=== PATIENT | male | born 1980 | race African-American/Black ===

== ENCOUNTER 2017-06-19 16:01 | Inpatient (IN) ==
[2017-06-19] MEDS ORDERED: ENOXAPARIN 100 MG/ML SYRINGE SUBCUT STA (17:29)
[2017-06-19] MEDS ORDERED: ASPIRIN 325 MG TABLET PO STA (17:29)
[2017-06-19] MEDS ORDERED: NITROGLYCERIN SL 0.4 MG TABLET SL PRN (17:29)
--- NOTE | 2017-06-19 17:46 | Emergency Department Note ---
Benjamin Castañeda Brooke, am scribing for, and in the presence of, Davidson Martin MD 17:36. Veronica Castañeda Phillip K, MD, personally performed the services described in this documentation, ascribed by Linda Alexander in my presence, and it is both accurate and complete 746 . Arrival <Katherine Swift - Last Filed: 06/19/17 19:09> - Arrival ED Nursing Triage Note: Pt c/o chest pain that radiates into his right arm since Friday. Denies SOB or nausea. Mode of Arrival: Ambulatory Limitations: No Limitations Source: Patient, RN Notes Reviewed - History of Present Illness Onset (ago): day(s) (5) Consistency: intermittent <Davidson Martin - Last Filed: 06/20/17 17:41> - Arrival Chief Complaint: Chest Pain Stated Complaint: CHEST PAIN Time Seen by Provider: 06/19/17 17:24 - History of Present Illness HPI Narrative: Patient is a 36 year old male who presents to the ED with c/o chest pain that started on Friday. He says he was not doing anything exertional when the pain started. Patient describes the pain as tightness and intermittent. It is located in the center of his chest. Patient chest is tender to palpation. He says the pain worsened last night and today. Nothing makes the pain worse. The chest pain does radiate into his right arm. He is currently in "a little" pain. He does not have history of heart problems and has never had heart cath or treadmill test in the past. He does not have a FHx of heart problems. Patient denies having nausea, vomiting,diaphoresis, shortness of breath, fever, cough, calf pain, or abdominal pain. He has no known medical problems and does not take any medications. Patient does not have a Primary Care Provider. He is a smoker. (Linda Alexander) Patient is a 36 year old male who presents to the ED with c/o chest pain that started on Friday. He says he was not doing anything exertional when the pain started. Patient describes the pain as tightness and intermittent. It is located in the center of his chest. Patient chest is tender to palpation. He says the pain worsened last night and today. Nothing makes the pain worse. The chest pain does radiate into his right arm. He is currently in "a little" pain. He does not have history of heart problems and has never had heart cath or treadmill test in the past. He does not have a FHx of heart problems. Patient denies having nausea, vomiting,diaphoresis, shortness of breath, fever, cough, calf pain, or abdominal pain. He has no known medical problems and does not take any medications. Patient does not have a Primary Care Provider. He is a smoker. (Davidson Martin) Allergies/Adverse Reactions: Allergies Allergy/AdvReac Type Severity Reaction Status Date / Time No Known Allergies Allergy Verified 08/30/15 17:49 Home Medications: Home Medications Medication Instructions Recorded Confirmed Type No Known Home Medications [No 06/19/17 06/19/17 History Known Home Medications] Review of System - Review of System 12 point system: reviewed and no additional remarkable complaints except as stated - Review of System Constitutional: Absent: diaphoresis, fever Respiratory: Absent: respiratory distress Cardiovascular: Present: chest pain Gastrointestinal: Absent: abdominal pain, nausea, vomiting Musculoskeletal: Present: arm pain (right) Skin: Absent: rash <Davidson Martin - Last Filed: 06/20/17 17:41> Medical,Surgical,& Family Hx - Medical History Gastrointestinal: History of: GERD (does not take any med for this) - Family History Family History: Reports;: Family Hypertension - Social History Smoking Status: Current every day smoker <Davidson Martin - Last Filed: 06/20/17 17:41> Exam - General General appearance: alert, in no apparent distress - Head Head exam: Present: atraumatic, normocephalic - Eye Eye exam: Present: normal appearance, PERRL, EOMI - ENT ENT exam: Present: normal exam - Neck Neck exam: Present: normal inspection - Chest Chest inspection: Present: symmetric chest wall rise, tenderness (anterior chest wall) - Respiratory Respiratory exam: Present: normal lung sounds bilaterally - Cardiovascular Cardiovascular exam: Present: regular rate, normal rhythm, normal heart sounds - Abdominal Exam Abdominal exam: Present: soft, normal bowel sounds. Absent: distention, tenderness - Extremities Exam Extremities exam: Present: normal inspection - Back Exam Back exam: Present: normal inspection - Neurological Exam Neurological exam: Present: alert, oriented X3 - Psychiatric Psychiatric exam: Present: normal affect, normal mood - Skin Skin exam: Present: warm, dry, intact, normal color <Davidson Martin - Last Filed: 06/20/17 17:41> Vital Signs: Vital Signs Temperature 97.8 F 06/20/17 15:52 Pulse Rate 66 06/20/17 17:20 Respiratory Rate 18 06/20/17 17:20 Blood Pressure 156/120 06/20/17 17:20 O2 Sat by Pulse Oximetry 100 06/20/17 17:20 Course <Katherine Swift - Last Filed: 06/19/17 19:09> <Davidson Martin - Last Filed: 06/20/17 17:41> Course Narrative: Spoke with Dr. Hardy visual basic developer on-call who will admit patient patient is stable at this time and is not actively having chest pain. Patient got Lovenox and aspirin while in the ED. (Katherine Swift) Results - Labs CBC & BMP: 06/19/17 17:42 06/19/17 17:42 Lab Results: I have reviewed the patients labs - EKG EKG results: interpreted by GADIEL <Katherine Swift - Last Filed: 06/19/17 19:09> - Labs CBC & BMP: 06/20/17 00:13 06/20/17 00:13 - EKG EKG results: interpreted by GADIEL, sinus rhythm (Inferior and lateral ST-T changes) <Davidson Martin - Last Filed: 06/20/17 17:41> Disposition Case discussed with: patient Time of Disposition: 19:12 <Katherine Swift - Last Filed: 06/19/17 19:09> <Davidson Martin - Last Filed: 06/20/17 17:41> Clinical Impression: Chest pain, Elevated troponin Disposition: Still a Patient Condition: Stable
[2017-06-19 17:57] LABS: Basophils % 0.5 % (0.0-0.8); Eosinophils # 0.1 10*3/uL (0.0-0.87); Hemoglobin 15.3 GM/DL (14.0-18.0); Immature Granulocytes % 0.5 %; Immature Granulocytes Absolute 0.03 #; Lymphocytes % 34.1 % (21.2-54.2); Mean Corpuscular HGB Conc 35.6 GM/DL (32-36); Mean Corpuscular Hemoglobin 32 PG (27-34); Mean Corpuscular Volume 89.8 FL (87-102); Mean Platelet Volume 10.5 FL (9.6-12.0); Monocytes # 0.7 10*3/uL (0.11-0.8); Monocytes % 11.4 % (1.7-12.7); Neutrophils # 3.1 10*3/uL (1.4-7.4); Neutrophils % 52.5 % (38.7-73.9); Platelet Count 268 T/CUMM (130-400); Red Blood Count 4.79 MC/CUMM (3.8-5.5); Red Cell Distribution Width 14.1 % (9.3-17.3); White Blood Count 5.9 T/CUMM (4-12)
[2017-06-19] MEDS ORDERED: ENOXAPARIN 100 MG/ML SYRINGE SUBCUT ONE (18:23)
[2017-06-19] MEDS ORDERED: ASPIRIN 325 MG TABLET ONE (18:23)
[2017-06-19 18:34] LABS: Albumin 3.7 G/DL (3.4-5.0); Bilirubin,Total 0.7 MG/DL (0.2-1.0); Calcium 9.3 MG/DL (8.5-10.1); Magnesium 2.4 MG/DL (1.8-2.4); Osmolality,Calculated 274.7 MOS/KG (273-304); Potassium 4.8 MMOL/L (3.5-5.1); Total Protein 7.3 G/DL (6.4-8.3)
--- NOTE | 2017-06-19 18:59 | XRay Report ---
History: Chest pain Date: 06/19/2017 Study: Chest x-ray AP portable Comparison exam: No previous chest x-ray currently available for comparison purposes. The cardiomediastinal silhouette and pulmonary vasculature are unremarkable for shallow breath. There is some questionable mild hazy left perihilar infiltrate. The lungs and pleural spaces are otherwise clear. Osseous structures are unremarkable. Impression: There is some questionable mild left perihilar infiltrate. Consider low-grade pneumonia. Follow-up films may be helpful PROCEDURE INTERPRETED AT [facility] DEPARTMENT OF RADIOLOGY Final Report Signed by: Dr. Gloria Mann
[2017-06-19] MEDS ORDERED: MAGNESIUM SULF RIDER 4 GM in PREMIX 1 EACH IV PRN (19:19)
[2017-06-19] MEDS ORDERED: ONDANSETRON 4 MG/2 ML VIAL IV PRN (19:19)
[2017-06-19] MEDS ORDERED: MAGNESIUM SULF RIDER 2 GM in PREMIX 1 EACH IV PRN (19:19)
[2017-06-19] MEDS ORDERED: ZALEPLON 5 MG CAPSULE PO PRN (19:19)
[2017-06-19] MEDS ORDERED: NICOTINE 21 MG/24 HR PATCH TRANSDERM PRN (19:19)
[2017-06-19 22:51] LABS: CKMB % 3.6 %
[2017-06-19 22:53] LABS: Troponin I Only 2.12 NG/ML (0.00-0.045)
[2017-06-20 00:52] LABS: Basophils % 0.3 % (0.0-0.8); Eosinophils # 0.1 10*3/uL (0.0-0.87); Eosinophils % 1.4 % (0.00-10.9); Hematocrit 42.8 VOL% (42.0-52.0); Immature Granulocytes % 0.3 %; Immature Granulocytes Absolute 0.02 #; Lymphocytes # 2.6 10*3/uL (1.4-4.0); Lymphocytes % 45.8 % (21.2-54.2); Mean Corpuscular Hemoglobin 31 PG (27-34); Mean Corpuscular Volume 89.4 FL (87-102); Mean Platelet Volume 10.9 FL (9.6-12.0); Monocytes # 0.5 10*3/uL (0.11-0.8); Monocytes % 9.1 % (1.7-12.7); Neutrophils # 2.5 10*3/uL (1.4-7.4); Neutrophils % 43.1 % (38.7-73.9); Platelet Count 257 T/CUMM (130-400); Red Blood Count 4.79 MC/CUMM (3.8-5.5); White Blood Count 5.7 T/CUMM (4-12)
[2017-06-20 01:24] LABS: CKMB % 3.9 %
[2017-06-20 01:26] LABS: Troponin I Only 2.9 NG/ML (0.00-0.045)
[2017-06-20 02:08] LABS: Alanine Aminotransferase 29 U/L (16-61); Albumin 3.5 G/DL (3.4-5.0); Alkaline Phosphatase 64 U/L (45-117); Aspartate Amino Transferase 38 U/L (0-37); Bilirubin,Total < 0.39 MG/DL (0.2-1.0); Blood Urea Nitrogen 14 MG/DL (7-18); Calcium 8.4 MG/DL (8.5-10.1); Cholesterol 229 MG/DL (50-200); Glucose 103 MG/DL (74-106); HDL Cholesterol 41 MG/DL (40-60); Osmolality,Calculated 277.5 MOS/KG (273-304); Potassium 3.8 MMOL/L (3.5-5.1); Risk Ratio 5.59; Sodium 139 MMOL/L (136-145); Triglycerides 175 MG/DL (2-150)
[2017-06-20 03:36] LABS: CKMB % 4.2 %
[2017-06-20 03:37] LABS: Troponin I Only 4.46 NG/ML (0.00-0.045)
--- NOTE | 2017-06-20 06:39 | EKG Report ---
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
--- NOTE | 2017-06-20 06:41 | EKG Report ---
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
--- NOTE | 2017-06-20 06:43 | EKG Report ---
Stationary ECG Study 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
--- NOTE | 2017-06-20 06:43 | EKG Report ---
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
--- NOTE | 2017-06-20 08:27 | XRay Report ---
Portable chest Exam date: 06/20/2017 558 AM Indication: Shortness of breath, cough Comparison: Previous day 0548 hours Findings: Cardiomediastinal contours are stable. Lungs are clear bilaterally. No acute osseous abnormalities. Visualized upper abdomen demonstrates no acute pathology. Impression: No acute cardiopulmonary findings PROCEDURE INTERPRETED AT [facility] DEPARTMENT OF RADIOLOGY Final Report Signed by: Dani Downing
[2017-06-20] MEDS ORDERED: PANTOPRAZOLE 40 MG TABLET PO SCH (09:00)
[2017-06-20] MEDS ORDERED: CARVEDILOL 3.125 MG TABLET PO SCH (09:30)
[2017-06-20] MEDS ORDERED: ASPIRIN CHEW 81 MG TABLET PO SCH (09:30)
[2017-06-20] MEDS ORDERED: MAGNESIUM SULF RIDER 2 GM in PREMIX 1 EACH IV PRN (10:28)
[2017-06-20] MEDS ORDERED: POTASSIUM CHLORIDE RIDER 10 MEQ in PREMIX 1 EACH IV PRN (10:28)
[2017-06-20] MEDS ORDERED: diphenhydrAMINE CAP 25 MG CAPSULE PO ONE (10:28)
[2017-06-20] MEDS ORDERED: DIAZEPAM 5 MG TABLET PO ONE (10:28)
[2017-06-20] MEDS ORDERED: SODIUM CHLORIDE 0.45% 1,000 ML IV SCH (10:30)
[2017-06-20] MEDS ORDERED: HEPARIN/NACL 0.9% 2 UNITS/ML 1,000 ML IV ONE (13:06)
[2017-06-20] MEDS ORDERED: LIDOCAINE 1%/EPI INJ 20 ML VIAL ONE (13:08)
[2017-06-20] MEDS ORDERED: MIDAZOLAM 2 MG/2 ML VIAL ONE (13:17)
[2017-06-20] MEDS ORDERED: fentaNYL 100 MCG/2 ML VIAL ONE (13:18)
--- NOTE | 2017-06-20 13:34 | History and Physical Update ---
Sedation H&P Update - Physical Exam Mental Status: alert and oriented Heart: regular rate and rhythm Lung: clear to auscultation Abdomen: within normal limits Vitals: within normal limits - Sedation Plan for Sedation: moderate Patient Consent: Procedure disscussed with patient and patinet has consented., Risks and benefits were discussed with patient,including infection,, bleeding, injury to surrounding structures, seizure, temporary nerve, Patient understands and accepts potential risks/benefits and agrees to, proceed. ASA Class: III Airway Assessment: Class III: Soft palate, base of uvula visible
[2017-06-20] MEDS ORDERED: ENOXAPARIN 60 MG/0.6 ML SYRINGE ONE (13:49)
[2017-06-20] MEDS ORDERED: TIROFIBAN 5,000 MCG/100 ML PREMIX IV ONE (13:54)
[2017-06-20] MEDS ORDERED: TIROFIBAN 5,000 MCG/100 ML PREMIX IV SCH (13:59)
[2017-06-20] MEDS ORDERED: TICAGRELOR 90 MG TABLET ONE (14:04)
[2017-06-20] MEDS ORDERED: hydrALAZINE 20 MG/1 ML VIAL ONE (14:16)
--- NOTE | 2017-06-20 14:34 | Cardiac Catheterization ---
Date of Procedure:: 06/20/17 Pre-op Diagnosis: Non-ST elevation myocardial infarction Post-op diagnosis: same Procedure: Procedures performed: #1 left heart catheterization #2 coronary angiography #3 percutaneous intervention to the distal circumflex coronary artery with a 2.25 x 12 mm synergy drug-eluting stent with a good angiographic result #4 Percutaneous intervention to the first marginal branch with a 2.25 x 16 mm Synergy drug-eluting stent with a good angiographic result #5 left ventriculography #6 right femoral sheath angiography #7 Angio-Seal closure right femoral arteriotomy site After obtaining informed consent the patient brought to the Nurse Ortho where the right groin was prepped and draped in the usual sterile manner. After local anesthesia and intravenous sedation a needle stick was made to the right femoral artery and a 6 Azeri sheath was positioned without difficulty. A Srhavan left catheter was advanced over a guidewire under fluoroscopic control to the ascending aorta where angiography of left coronary artery was undertaken in multiple views. After adequate angiograms of the left coronary were obtained this catheter was withdrawn and an AMRM right coronary catheter was advanced over a guidewire under fluoroscopic control to the ascending aorta where angiography of the right coronary artery was undertaken in multiple views. After adequate angiograms of the right coronary were obtained this catheter was withdrawn and a pigtail ventriculographic catheter was advanced over a guidewire under fluoroscopic control to the ascending aorta where it was passed across the aortic valve and intraventricular hemodynamics were measured. Patient underwent left ventriculography injecting 35 mL of contrast at 12 mL/ s. This was performed from the right anterior oblique projection. After ventriculography this catheter was pulled back from the ventricle to the aorta under hemodynamic monitoring and removed. We elected to proceed with percutaneous intervention of the circumflex and first marginal branch of the circumflex coronary artery. A Shravan left guide was advanced over a guidewire under fluoroscopic control to the ascending aorta where the left coronary artery was engaged. An 014 BMW wire was advanced to the distal circumflex coronary artery and a 2.25 x 12 mm synergy drug-eluting stent was advanced to the lesion and after adequate positioning was deployed at 14 maik. After post stent deployment inflation there was good step up and step down with distal coronary vasospasm that resolved over time. There was ORQUIDEA grade 3 flow down the vessel noted end procedure. At this point we directed our attention to the first marginal branch. The BMW wire was directed down the marginal branch and then a 2.25 x 16 mm Synergy drug-eluting stent was advanced to the area the ostium of the marginal and inflated to 11 maik. There was good resolution of the stenotic segment at the origin of the vessel. There was good stepup distally. There was ORQUIDEA grade III flow down both marginal and the circumflex. Repeat angiography confirmed a good result. At this point the guidewire and delivery balloon were removed from the guide. The guide was then removed from the sheath. The patient underwent right femoral sheath angiography which demonstrated anatomy appropriate for Angio-Seal closure. This was performed without difficulty and good hemostasis was obtained. Hemodynamics: Please see the accompanying data sheet Coronary angiography: Left coronary artery: The left main coronary artery is well-developed and free of significant obstructing lesions. The circumflex coronary is a large dominant vessel that is subtotally occluded at the distal portion. This is at the takeoff of a moderate sized marginal branch. The stenosis is fairly discrete and 99% flow- limiting. The first marginal branch of the circumflex is noted to have an ostial 90% area stenosis. The remainder the circumflex and its branches are free of significant obstructing lesions. There is a large ramus branch of the left coronary system which is free of significant obstructing lesions. The left anterior descending coronary artery is a large vessel that extends to the apex of the ventricle. The LAD and its branches are free of significant obstructing lesions. Right coronary artery: The right coronary artery is a large dominant vessel that possesses no significant lesions through its course. The branches of the right coronary likewise are free of significant obstructing lesions. Left ventriculography: After injection of contrast in the left ventricle it is noted to be mildly enlarged with diffuse moderate left ventricular hypokinesis. Overall ejection fraction measures in the 40-45% range. Mitral and aortic structures appear normal by ventriculography. Percutaneous intervention: Distal circumflex: After the above-described procedure of the distal circumflex appeared to be resolution of the stenosis with ORQUIDEA grade III flow down the vessel. There was initial distal vasospasm which resolved over time. Final result appeared to be without significant complication. First marginal: After stent deployment at the ostium the first marginal appeared to be good resolution of the stenosis noted. There was no impingement upon the circumflex proper and ORQUIDEA grade III flow down both marginal and the circumflex. Right femoral sheath angiography: After injection of contrast in the right femoral arterial sheath it appears to enter the common femoral above the bifurcation. No evidence of significant disease of the distal iliac, common femoral or bifurcation be noted based on this limited angiographic study. Conclusions: 1: Successful percutaneous coronary intervention of the distal circumflex as well as of the first marginal related to intracoronary stent placement. These were 2.25 x 12 in the distal circumflex and 2.25 x 16 and the marginal branch. 2 ejection fraction noted to be in the 40-45% range with diffuse LV hypokinesis 3: Angio-Seal closure right femoral arteriotomy site Discussion and recommendations: The patient presents with non-ST elevation myocardial infarction. Received percutaneous intervention to the first marginal branch and to the distal circumflex. There is good angiographic result in both sides and we will watch the patient closely for evidence of recurring ischemia or bleeding. We will continue aggressive risk factor modification and appropriate antianginal treatment. Surgeon / Physician: Prince Hardy - Medications / Follow-up
[2017-06-20] MEDS ORDERED: HYDROmorphone 2 MG/1 ML VIAL IV PRN (15:39)
[2017-06-20] MEDS: ASPIRIN EC 81 MG TABLET PO SCH (16:14)
[2017-06-20] MEDS: cloNIDine 0.1 MG TABLET PO PRN ×3 (16:14→18:14)
[2017-06-20] MEDS: ROSUVASTATIN 20 MG TABLET PO SCH (21:18)
[2017-06-20] MEDS: TICAGRELOR 90 MG TABLET PO SCH (21:18)
[2017-06-20] MEDS: METOPROLOL TARTRATE 50 MG TABLET PO SCH (21:18)
[2017-06-21 06:08] LABS: Basophils % 0.6 % (0.0-0.8); Eosinophils # 0.1 10*3/uL (0.0-0.87); Eosinophils % 1.1 % (0.00-10.9); Immature Granulocytes % 0.6 %; Immature Granulocytes Absolute 0.03 #; Lymphocytes # 1.8 10*3/uL (1.4-4.0); Lymphocytes % 33.8 % (21.2-54.2); Mean Corpuscular HGB Conc 35.7 GM/DL (32-36); Mean Corpuscular Hemoglobin 32 PG (27-34); Mean Corpuscular Volume 89.4 FL (87-102); Mean Platelet Volume 11.2 FL (9.6-12.0); Monocytes # 0.6 10*3/uL (0.11-0.8); Monocytes % 10.8 % (1.7-12.7); Neutrophils # 2.8 10*3/uL (1.4-7.4); Neutrophils % 53.1 % (38.7-73.9); Platelet Count 256 T/CUMM (130-400); Red Cell Distribution Width 14.1 % (9.3-17.3); White Blood Count 5.3 T/CUMM (4-12)
[2017-06-21 07:59] LABS: Magnesium 2.2 MG/DL (1.8-2.4); Osmolality,Calculated 274.7 MOS/KG (273-304); Potassium 4.3 MMOL/L (3.5-5.1)
[2017-06-21] MEDS: LOSARTAN 25 MG TABLET PO SCH (08:15)
[2017-06-21] MEDS: TICAGRELOR 90 MG TABLET PO SCH ×2 (08:15→21:47)
[2017-06-21] MEDS: PANTOPRAZOLE 40 MG TABLET PO SCH (08:15)
[2017-06-21] MEDS: METOPROLOL TARTRATE 50 MG TABLET PO SCH ×2 (08:15→21:47)
[2017-06-21] MEDS: ASPIRIN EC 81 MG TABLET PO SCH (08:15)
--- NOTE | 2017-06-21 09:40 | Cardiology Progress Note ---
Assessment and Plan (1) Non-ST elevation myocardial infarction (NSTEMI) Status: Acute Assessment and plan: Patient is undergone 2 stents to the circumflex with good results and our plan we to continue his current medical therapy. We discussed in detail the need for him to take his medications and follow-up related to his heart issues. Current Visit: Yes (2) Hypertension Status: Acute Current Visit: Yes (3) Dyslipidemia Status: Chronic Current Visit: Yes Cardiology - PN: Subj Interval history: June 20, 2017: Mr. Rodriguez is a 36 year old male, who presented to the ER with complaints of central chest pain. Reports that he started having central chest tightness 4 days ago while at rest. He states he believed he was having gas pains and he took something for gas and the pain eventually resolved. He reports the episode happened again 2 days later, again he noted he was at rest and he began having central chest tightness with radiation to the right arm. He took OTC gas medication, and the pain eventually was relieved. He reports that yesterday approximately 1 hour after eating he began having chest tightness that would not go away. This was what brought him into the emergency room. He denies nausea, vomiting, palpitations, shortness of breath, edema during these episodes. He describes the chest pain as tightness. He denies aggravating factors and notes that chest pain was alleviated after taking OTC gas medication. Past surgical history includes a previous left leg surgery after fracture. He reports no medical history other than he was seen at this ER sometime ago for hypertension, and was not discharged on medications. He denies following up with a primary care provider. He does report occasional headaches. He reports smoking for 22 years, he describes smoking 4-5 cigarettes a day and states that it probably was heavier earlier in life. He reports occasional alcohol use, and occasional marijuana use. Cardiac risk factors include obesity, tobacco abuse, sedentary lifestyle, hypertension, dyslipidemia. His reports that he snores regularly, given his size I suspect some degree of ROLANDO. He states he has a family history of hypertension and CVA. The patient was seen this morning sitting up on the side of the bed. He is remained chest pain-free since admission to telemetry. Blood pressure has been running in the 150s over 90s since admission. EKG shows sinus rhythm with some T-wave abnormality, possible lateral ischemia. Cardiac biomarkers have been cycle, with a peak in troponin at 4.46 and a total creatinine kinase at 459, CK- MB 19. Triglycerides 175, cholesterol 229, LDL 162, HDL 41. The patient has remained n.p.o. since midnight. I have discussed possible heart catheterization with this patient and his family, will discuss with Dr. Hardy and await further instr June 21, 2017: The patient is a 36-year-old man presents with chest discomfort and non-ST elevation myocardial infarction. He underwent stenting of the first marginal as well as of the distal circumflex yesterday has done well post procedure. We will increase ambulation today and likely discharge him tomorrow. He denies anginal chest pain currently. Exam (Progress Note) - Constitutional Vitals: Period Temp Pulse Resp BP Sys/[place] Pulse Ox Last 24 Hr 96.9 F-97.8 F 63-74 15-18 114-191/67-120 94-100 Exam: General:no acute distress. alert and oriented, mood and affect are normal HEENT: no new lesions, sclerae are clear, mouth and pharynx benign Neck: supple, trachea midline, no JVD noted Lungs: no rales ronchi or wheeze is noted. pt comfortable without accesory muscle use to assist with breathing CV: RRR no murmur rub or gallop is noted. Abd: soft and nontender, BSNA, no masses. Ext: no cyanosis, clubbing or edema Neuro: grossly intact without focal neurologic deficit. Result/EKG - Labs CBC & BMP: 06/21/17 04:40 06/21/17 04:41 Labs: Laboratory Results - last 24 hr 06/21/17 06/21/17 06/21/17 04:40 04:41 04:41 WBC 5.3 RBC 4.70 Hgb 15.0 Hct 42.0 MCV 89.4 MCH 32 MCHC 35.7 RDW 14.1 Plt Count 256 MPV 11.2 Neut % (Auto) 53.1 Lymph % (Auto) 33.8 Gilchrist % (Auto) 10.8 Eos % (Auto) 1.1 Baso % (Auto) 0.6 Neut # (Auto) 2.8 Lymph # (Auto) 1.8 Gilchrist # (Auto) 0.6 Eos # (Auto) 0.1 Baso # (Auto) 0.0 Immature Gran % 0.6 Nucleated RBC % 0.0 Immature Gran # 0.03 Nucleated RBCs # 0.00 Immature Plt Fraction 0.0 Sodium 138 Potassium 4.3 Chloride 105 Carbon Dioxide 24 Anion Gap 13.3 BUN 14 Creatinine 1.00 GFR Calculation 167 BUN/Creatinine Ratio 14.00 Glucose 89 Calculated Osmolality 274.7 Calcium 9.0 Magnesium 2.2 Troponin I 2.110 H D 06/21/17 07:28 WBC RBC Hgb Hct MCV MCH MCHC RDW Plt Count MPV Neut % (Auto) Lymph % (Auto) Gilchrist % (Auto) Eos % (Auto) Baso % (Auto) Neut # (Auto) Lymph # (Auto) Gilchrist # (Auto) Eos # (Auto) Baso # (Auto) Immature Gran % Nucleated RBC % Immature Gran # Nucleated RBCs # Immature Plt Fraction Sodium Potassium Chloride Carbon Dioxide Anion Gap BUN Creatinine GFR Calculation BUN/Creatinine Ratio Glucose Calculated Osmolality Calcium Magnesium Troponin I 1.990 H Quality Measures - VTE Contraindication to Pharmacological VTE Prophylaxis: High Risk of Bleeding
[2017-06-21] MEDS: ROSUVASTATIN 20 MG TABLET PO SCH (21:47)
[2017-06-22 06:17] LABS: Basophils % 0.4 % (0.0-0.8); Eosinophils # 0.1 10*3/uL (0.0-0.87); Eosinophils % 0.9 % (0.00-10.9); Hemoglobin 14.8 GM/DL (14.0-18.0); Immature Granulocytes % 0.2 %; Immature Granulocytes Absolute 0.01 #; Lymphocytes % 36.4 % (21.2-54.2); Mean Corpuscular HGB Conc 35.2 GM/DL (32-36); Mean Corpuscular Hemoglobin 31 PG (27-34); Mean Corpuscular Volume 89.2 FL (87-102); Mean Platelet Volume 11.1 FL (9.6-12.0); Monocytes # 0.8 10*3/uL (0.11-0.8); Monocytes % 14.1 % (1.7-12.7); Neutrophils # 2.6 10*3/uL (1.4-7.4); Platelet Count 237 T/CUMM (130-400); Red Blood Count 4.71 MC/CUMM (3.8-5.5); Red Cell Distribution Width 13.8 % (9.3-17.3); White Blood Count 5.5 T/CUMM (4-12)
[2017-06-22 06:51] LABS: Calcium 8.8 MG/DL (8.5-10.1); Magnesium 2.2 MG/DL (1.8-2.4); Osmolality,Calculated 272.8 MOS/KG (273-304); Potassium 3.9 MMOL/L (3.5-5.1)
[2017-06-22] MEDS: METOPROLOL TARTRATE 50 MG TABLET PO SCH (08:51)
[2017-06-22] MEDS: LOSARTAN 25 MG TABLET PO SCH (08:51)
[2017-06-22] MEDS: ASPIRIN EC 81 MG TABLET PO SCH (08:51)
[2017-06-22] MEDS: TICAGRELOR 90 MG TABLET PO SCH (08:51)
[2017-06-22] MEDS: PANTOPRAZOLE 40 MG TABLET PO SCH (08:51)
--- NOTE | 2017-06-22 10:18 | Cardiology History & Physical ---
Vaughn Castañeda Lesley, NP, am scribing for, and in the presence of, Prince Hardy MD 10:18. Assessment and Plan - Time spent with patient Time spent with patient: Greater than 30 minutes (Record review, assessment, and documented) (1) Chest pain Status: Acute Assessment and plan: SEE PLAN LISTED BELOW Current Visit: Yes (2) Elevated troponin Status: Acute Assessment and plan: SEE PLAN LISTED BELOW Current Visit: Yes (3) Hypertension Status: Acute Assessment and plan: SEE PLAN LISTED BELOW Current Visit: Yes (4) Dyslipidemia Status: Chronic Assessment and plan: SEE PLAN LISTED BELOW Current Visit: Yes History of Present Illness Chief complaint: Chest pain History of present illness: [employer]: none Mr. Rodriguez is a 36 year old male, who presented to the ER with complaints of central chest pain. Reports that he started having central chest tightness 4 days ago while at rest. He states he believed he was having gas pains and he took something for gas and the pain eventually resolved. He reports the episode happened again 2 days later, again he noted he was at rest and he began having central chest tightness with radiation to the right arm. He took OTC gas medication, and the pain eventually was relieved. He reports that yesterday approximately 1 hour after eating he began having chest tightness that would not go away. This was what brought him into the emergency room. He denies nausea, vomiting, palpitations, shortness of breath, edema during these episodes. He describes the chest pain as tightness. He denies aggravating factors and notes that chest pain was alleviated after taking OTC gas medication. Past surgical history includes a previous left leg surgery after fracture. He reports no medical history other than he was seen at this ER sometime ago for hypertension, and was not discharged on medications. He denies following up with a primary care provider. He does report occasional headaches. He reports smoking for 22 years, he describes smoking 4-5 cigarettes a day and states that it probably was heavier earlier in life. He reports occasional alcohol use, and occasional marijuana use. Cardiac risk factors include obesity, tobacco abuse, sedentary lifestyle, hypertension, dyslipidemia. His reports that he snores regularly, given his size I suspect some degree of ROLANDO. He states he has a family history of hypertension and CVA. The patient was seen this morning sitting up on the side of the bed. He is remained chest pain-free since admission to telemetry. Blood pressure has been running in the 150s over 90s since admission. EKG shows sinus rhythm with some T-wave abnormality, possible lateral ischemia. Cardiac biomarkers have been cycle, with a peak in troponin at 4.46 and a total creatinine kinase at 459, CK- MB 19. Triglycerides 175, cholesterol 229, LDL 162, HDL 41. The patient has remained n.p.o. since midnight. I have discussed possible heart catheterization with this patient and his family, will discuss with Dr. Hardy and await further instructions. IMPRESSION/PLAN: 1. CHEST PAIN -currently chest pain-free, cardiac biomarkers trending upward with troponin at 4.46, EKG reveals T-wave abnormality, possible lateral ischemia , patient is n.p.o. and prepare for possible left heart cath today. 2. ELEVATED TROPONIN -peaked at 4.46, total CK 459, CK-MB 19. Currently chest pain-free. 3. HYPERTENSION -initiate low-dose beta-efe and continue to monitor. 4. DYSLIPIDEMIA -will initiate statin, LDL 162. I have discussed in detail the particulars of this case and I have examined the patient and reviewed the patient's chart both current and old. I was directly involved in the patient's evaluation and management and I completely agree with EARL Amador regarding this patient's evaluation and treatment plan. Home Medications Medication Instructions Recorded Confirmed Type No Known Home Medications [No 06/19/17 06/19/17 History Known Home Medications] Allergies Allergy/AdvReac Type Severity Reaction Status Date / Time No Known Allergies Allergy Verified 08/30/15 17:49 - EENT Nose, mouth and throat: Absent: epistaxis, headache(s) - Cardiovascular Cardiovascular: Present: chest pain at rest, chest pain with activity, radiating jaw, neck or arm pain. Absent: diaphoresis, dyspnea, dyspnea on exertion, edema, orthopnea, palpitations - Respiratory Respiratory: Present: snoring. Absent: cough, dyspnea, wheezing - Gastrointestinal Gastrointestinal: Absent: abdominal pain, change in bowel habits, coffee ground emesis, diarrhea, dyspepsia, heartburn, hematemesis, hematochezia, nausea, vomiting - Genitourinary Genitourinary: Absent: dysuria, hematuria - Musculoskeletal Musculoskeletal: Absent: arthralgias - Neurological Neurological: Absent: abnormal gait, abnormal speech, behavioral changes, confusion, dizziness - Psychiatric Psychiatric: Absent: anxiety, depression - Endocrine Endocrine: Absent: cold intolerance, fatigue - Hematologic/Lymphatic Hematologic/Lymphatic: Absent: easy bleeding Medical,Surgical,& Family Hx - Medical History Cardio: History of: Hypertension Endocrine: History of: Dyslipidemia Gastrointestinal: History of: GERD (does not take any med for this) - Surgical History Orthopedic Surgeries: Surgical HX of;: Orthopedic Surgery - Family History Family History: Reports;: Family Hypertension - Social History Smoking Status: Current every day smoker Have you smoked in the last 12 months: Yes Time spent discussing smoking cessation with patient: more than 10 minutes Frequency of Alcohol Use: Occasionally Type of Drug Use: Marijuana Lives With:: Spouse Functional capacity: independent ambulation Cardiology Physical Exam - Constitutional Vitals: Vital Signs Temp Pulse Resp BP Pulse Ox 97.5 F L 65 18 150/93 99 06/20/17 07:54 06/20/17 07:54 06/20/17 07:54 06/20/17 07:54 06/20/17 07:54 Intake and Output 06/19/17 06/20/17 06/20/17 23:59 07:59 15:59 Intake Total 0 / 0 0 / 0 Output Total 0 / 0 Balance 0 / 0 0 / 0 Intake: Oral 0 / 0 0 / 0 Output: Urine 0 / 0 Other: Weight 323 lb Exam: General: Appears well with no apparent distress. Pleasant and cooperative. Appears comfortable. HEENT: PERRL, normocephalic, atraumatic. Mucous membranes moist. No jaundice noted. Conjunctiva moist and clear, sclerae anicteric. Neck: No JVD/HJR, no thyromegaly or lymphadenopathy noted. No carotid bruit appreciated. Cardiac: Regular rate and rhythm. No murmur rub or gallop. PMI is nondisplaced. Lungs: Clear to auscultation without accessory muscle use to assist the respiratory pattern. No oxygen required. Abdomen: Soft, bowel sounds normoactive. Nontender and nondistended. No abdominal bruit or thrill noted. No masses noted. Musculoskeletal: No fluid collection. Full range of motion is noted. Extremities: No clubbing, cyanosis noted. No edema noted. Upper extremity pulses 2+. Lower extremity pulses 2+. Capillary refill less than 3 seconds. Skin: Skin warm and dry no unusual lesions or rashes. No skin breakdown appreciated. Neuro: Awake, alert and oriented 3. Moves all extremities well without hemiparesis or paralysis. No essential tremor is appreciated. Result/EKG - Labs CBC & BMP: 06/22/17 05:10 06/22/17 05:10 Lab Results: I have reviewed the past 24 hour labs Labs: Laboratory Results - last 24 hr 06/19/17 06/19/17 06/19/17 17:42 17:42 17:42 WBC 5.9 RBC 4.79 Hgb 15.3 Hct 43.0 MCV 89.8 MCH 32 MCHC 35.6 RDW 14.1 Plt Count 268 MPV 10.5 Neut % (Auto) 52.5 Lymph % (Auto) 34.1 [place] % (Auto) 11.4 Eos % (Auto) 1.0 Baso % (Auto) 0.5 Neut # (Auto) 3.1 Lymph # (Auto) 2.0 [place] # (Auto) 0.7 Eos # (Auto) 0.1 Baso # (Auto) 0.0 Immature Gran % 0.5 Nucleated RBC % 0.0 Immature Gran # 0.03 Nucleated RBCs # 0.00 Immature Plt Fraction 0.0 Sodium 138 Potassium 4.8 Chloride 105 Carbon Dioxide 27 Anion Gap 10.8 BUN 15 Creatinine 1.10 GFR Calculation 155 BUN/Creatinine Ratio 13.00 Glucose 85 Calculated Osmolality 274.7 Calcium 9.3 Magnesium 2.4 Total Bilirubin 0.70 AST 31 ALT 30 Alkaline Phosphatase 65 Total Creatine Kinase CK-MB (CK-2) CK and CKMB Interp Troponin I 0.880 H B-Natriuretic Peptide Total Protein 7.3 Albumin 3.7 Globulin 3.6 H Albumin/Globulin Ratio 1.0 L Triglycerides Cholesterol LDL Cholesterol VLDL Cholesterol HDL Cholesterol Heart Disease Risk Ratio TSH 3rd Generation 06/19/17 06/20/17 06/20/17 22:07 00:13 00:13 WBC 5.7 RBC 4.79 Hgb 15.0 Hct 42.8 MCV 89.4 MCH 31 MCHC 35.0 RDW 14.0 Plt Count 257 MPV 10.9 Neut % (Auto) 43.1 Lymph % (Auto) 45.8 [place] % (Auto) 9.1 Eos % (Auto) 1.4 Baso % (Auto) 0.3 Neut # (Auto) 2.5 Lymph # (Auto) 2.6 [place] # (Auto) 0.5 Eos # (Auto) 0.1 Baso # (Auto) 0.0 Immature Gran % 0.3 Nucleated RBC % 0.0 Immature Gran # 0.02 Nucleated RBCs # 0.00 Immature Plt Fraction 0.0 Sodium Potassium Chloride Carbon Dioxide Anion Gap BUN Creatinine GFR Calculation BUN/Creatinine Ratio Glucose Calculated Osmolality Calcium Magnesium Total Bilirubin AST ALT Alkaline Phosphatase Total Creatine Kinase 419 H 444 H CK-MB (CK-2) 15.1 H 17.2 H CK and CKMB Interp 3.6 3.9 Troponin I 2.120 H D 2.900 H D B-Natriuretic Peptide Total Protein Albumin Globulin Albumin/Globulin Ratio Triglycerides Cholesterol LDL Cholesterol VLDL Cholesterol HDL Cholesterol Heart Disease Risk Ratio TSH 3rd Generation 06/20/17 06/20/17 06/20/17 00:13 00:13 02:56 WBC RBC Hgb Hct MCV MCH MCHC RDW Plt Count MPV Neut % (Auto) Lymph % (Auto) [place] % (Auto) Eos % (Auto) Baso % (Auto) Neut # (Auto) Lymph # (Auto) [place] # (Auto) Eos # (Auto) Baso # (Auto) Immature Gran % Nucleated RBC % Immature Gran # Nucleated RBCs # Immature Plt Fraction Sodium 139 Potassium 3.8 Chloride 105 Carbon Dioxide 26 Anion Gap 11.8 BUN 14 Creatinine 1.00 GFR Calculation 171 BUN/Creatinine Ratio 14.00 Glucose 103 Calculated Osmolality 277.5 Calcium 8.4 L Magnesium Total Bilirubin < 0.39 AST 38 H ALT 29 Alkaline Phosphatase 64 Total Creatine Kinase 459 H CK-MB (CK-2) 19.1 H CK and CKMB Interp 4.2 Troponin I 4.460 H D B-Natriuretic Peptide 98 Total Protein 7.0 Albumin 3.5 Globulin 3.5 Albumin/Globulin Ratio 1.0 L Triglycerides 175 H Cholesterol 229 H LDL Cholesterol 162.0 VLDL Cholesterol 35.0 HDL Cholesterol 41 Heart Disease Risk Ratio 5.59 TSH 3rd Generation 1.800 - Diagnostic Findings Procedure: Chest x-ray: report reviewed by me - EKG EKG results: interpreted by me, sinus rhythm IAntony Wesley, MD, personally performed the services described in this documentation, ascribed by Ivy Mendes NP in my presence, and it is both accurate and complete .
--- NOTE | 2017-06-22 10:21 | Discharge Summary ---
Hospital Course - Hospital Course Hospital Course: This is a 36-year-old man who presented with chest discomfort. He noted chest tightness 4 days prior to admission thought it was gas pains and took over-the- counter gas medication and had relief over the next hour or so. He had recurring chest discomfort and noted this after eating presented here had a troponin which was in the 4.4 range. He was admitted to the hospital on 06/20 and that afternoon underwent cardiac catheterization and stenting of 2 vessels of the circumflex. He had a distal circumflex stent and a stent at the ostium of the first marginal. He has done well post percutaneous intervention is ambulating without difficulty. He has had no anginal chest discomfort and our plan is going to be to discharge the patient home to have his see him back in 2 weeks. I have explained to him in significant detail so that he is understanding that he cannot stop his medications. I have offered to provide him medications if he can afford them and he understands this as well. He is ready for discharge at this time to see me back in 2 weeks for follow-up. - Time spent with patient Time with patient DS: Greater than 30 minutes (Related to medication prescriptions review with the patient and examination of the patient) Diagnosis - Discharge Diagnosis (1) Chest pain Status: Acute (2) Elevated troponin Status: Acute (3) Hypertension Status: Acute (4) Dyslipidemia Status: Chronic Discharge Plan - Discharge Data Disposition: Disch To Home/Self Care Condition at Discharge: Stable Discharge Diet: heart healthy Activity: resume usual activities as tolerated, other (No driving for 1 week. No strenuous activity until I see him back) - Discharge Medications New Aspirin EC Tab 81 mg PO DAILY #30 tablet Losartan [Cozaar] 12.5 mg PO DAILY #30 tablet Metoprolol Tartrate Tab [Lopressor Tab] 50 mg PO BID #60 tablet Rosuvastatin [Crestor] 20 mg PO BEDTIME #30 tablet Ticagrelor [Brilinta] 90 mg PO BID #60 tablet Pantoprazole Tab [Protonix Tab] 40 mg PO DAILY #30 tablet - Follow Up or Referral Follow Up: Prince Hardy MD [Physician] - 2 Weeks (CBC CMP EKG on return) - Forms/Instructions Exam - Constitutional Vitals: Period Temp Pulse Resp BP Sys/[place] Pulse Ox Last 24 Hr 97.5 F-98.1 F 62-77 16-20 126-166/62-82 90-100 Discharge Results Procedures and tests throughout hospitalization: Pending Orders 06/20/17 10:28 CL heart Routine 06/23/17 04:00 BMP w/ Mg [Basic Metabolic Panel w/Mg] IN AM CBC [Comp Blood Count Auto Diff] IN AM Labs on day of discharge: Labs from last 24 hours 06/22/17 06/22/17 06/22/17 07:59 05:10 05:10 WBC 5.5 RBC 4.71 Hgb 14.8 Hct 42.0 MCV 89.2 MCH 31 MCHC 35.2 RDW 13.8 Plt Count 237 MPV 11.1 Neut % (Auto) 48.0 Lymph % (Auto) 36.4 [place] % (Auto) 14.1 H Eos % (Auto) 0.9 Baso % (Auto) 0.4 Neut # (Auto) 2.6 Lymph # (Auto) 2.0 [place] # (Auto) 0.8 Eos # (Auto) 0.1 Baso # (Auto) 0.0 Immature Gran % 0.2 Nucleated RBC % 0.0 Immature Gran # 0.01 Nucleated RBCs # 0.00 Immature Plt Fraction 0.0 Sodium 137 Potassium 3.9 Chloride 106 Carbon Dioxide 24 Anion Gap 10.9 BUN 16 Creatinine 1.00 GFR Calculation 168 BUN/Creatinine Ratio 16.00 Glucose 85 POC Glucose 93 Calculated Osmolality 272.8 L Calcium 8.8 Magnesium 2.2 DS: Provider Date of admission: 06/19/17 19:19 Primary care physician: . No PCP Attending physician on admission: Prince Hardy MD Consults: 06/20/17 14:35 Consult to Cardiac Rehabilitation [CONS] Routine Reason for Cardiac Rehabilitation: Risk Factor Modification Other Consult Comment: Evaluate and recommend Discharging clinician: Prince Hardy MD
[2017-06-22 11:47] LABS: Osmolality,Calculated 273.8 MOS/KG (273-304); Potassium 4.1 MMOL/L (3.5-5.1)
[2017-06-22 12:47] VITALS: BP 159/91
== END 2017-06-22 13:30 | disposition home or self-care (01) | DRG 247 ==
LOC: N.ED 16:01 → N.EDINP 19:19 → N.TELES 19:40
PROVIDERS: ADMIT Internal Medicine Interventional Cardiology; ATTEND Internal Medicine Interventional Cardiology
PROC: CLCCHCL (ICD-10-PCS; 2017-06-20 13:15)